=== PATIENT | female | born 1975 | race Caucasian/White ===

== ENCOUNTER 2018-06-01 23:26 | Emergency (ER) | END 2018-06-02 03:23 | disposition home or self-care (01) ==

== ENCOUNTER 2018-06-02 17:11 | Inpatient (IN) | payer MEDICAID ==
[~2018-06-02] VITALS: Ht 162.6 cm; Wt 94.2 kg
[~2018-06-02 17:11] MED LIST: CIPR500T4 PO; HYDR-3498 PO; IBUP-1542 PO
[2018-06-02 17:14] VITALS: Ht 162.6 cm; Wt 94.2 kg
[2018-06-02] MEDS ORDERED: ONDANSETRON 4 MG INJ IV STA (18:10)
[2018-06-02] MEDS ORDERED: SOD CHLORIDE 0.9% 1,000 ML IV ONE (18:30)
[2018-06-02] MEDS ORDERED: CEFTRIAXONE 1 GM/50 ML (PMX) 50 ML IVPB ONE (18:30)
[2018-06-02] MEDS ORDERED: morphine 4 MG/ML VIAL IV STA (19:08)
--- NOTE | 2018-06-02 19:20 | ERD ---
ER Documentation Chief Complaint Chief Complaint Pt called by [facility] for lab results, seen yesterday HPI 43-year-old female history of remote appendectomy was evaluated in the ED earlier this morning diagnosed with pyelonephritis treated with Rocephin and discharged on ciprofloxacin called back today for evaluation of blood cultures which were positive for gram-negative rods. Patient complains of ongoing fevers, right flank pain and mild, generalized headache. Denies neck or back pain. Denies dysuria, polyuria or hematuria. Denies chest pain, palpitations, cough or shortness of breath. No relieving or exacerbating factors. ROS All systems reviewed and are negative except as per history of present illness. Medications Home Meds Active Scripts Hydrocodone Bit-Acetaminophen (Hydrocodone Bit-APAP) 5-325MG Tablet, 1 TAB PO Q6H PRN for MODERATE PAIN LEVEL 4-6 for 7 Days, #28 TAB Prov:REUBEN VAZ MD 06/07/18 Simethicone (GAS RELIEF) 80 Mg Tab.chew, 80 MG PO Q6 PRN for DISTENSION/GAS/BLOATING for 30 Days, #120 TAB.CHEW Prov:REUBEN VAZ MD 06/06/18 Ondansetron (Ondansetron Odt) 4 Mg Tab.rapdis, 4 MG PO Q6H PRN for NAUSEA AND/OR VOMITING for 7 Days, #30 TAB Prov:REUBEN VAZ MD 06/06/18 Fluticasone Propionate* (Fluticasone Propionate* Nasal) 50 Mcg/[place] - 16 Gm [place].susp, 1 SPRAY NASAL BID for 14 Days, #1 BOT 6 Refills Prov:REUBEN VAZ MD 06/06/18 Loratadine/Pseudoephedrine (Alavert D-12 Allergy-Sinus Tab) 1 Each Tab.er.12h, 1 TAB PO Q12 for 7 Days, #14 TAB Prov:REUBEN VAZ MD 06/06/18 Ciprofloxacin Hcl* (Ciprofloxacin Hcl*) 500 Mg Tablet, 500 MG PO BID for 10 Days, #20 TAB Prov:REUBEN VAZ MD 06/06/18 Ibuprofen* (Motrin*) 600 Mg Tab, 600 MG PO Q6, #20 TAB Prov:ASHLEY OLMOS MD 06/02/18 Discontinued Scripts Hydrocodone Bit/Acetaminophen (Anexsia 5-325 Mg Tablet) 1 Tab Tablet, 2 TAB PO Q4 PRN for PAIN LEVEL 4-7, #20 TAB Prov:KADE MEEK NP 11/11/15 Allergies Allergies: Coded Allergies: No Known Allergy (Unverified , 06/02/18) PMhx/Soc Reviewed in chart. As per HPI. History of Surgery: Yes (just had laparoscopic appendectomy) Anesthesia Reaction: No Hx Neurological Disorder: No Hx Respiratory Disorders: No Hx Cardiac Disorders: No Hx Psychiatric Problems: No Hx Miscellaneous Medical Probl: No Hx Alcohol Use: No Hx Substance Use: No Hx Tobacco Use: No FmHx No family history relevant to presenting complaint Physical Exam Vitals Temperature: 98.7. Pulse: 98. Respirations: 18. Blood pressure: 124/73. O2 saturation 97% on room air. Physical Exam Const: Alert, moderate distress Head: Atraumatic Eyes: Normal Conjunctiva ENT: Normal External Ears, Nose and Mouth. Neck: Full range of motion. No meningismus. Resp: Clear to auscultation bilaterally Cardio: Regular rate and rhythm, no murmurs Abd: Soft, non tender, non distended. No rebound or guarding. Normal bowel sounds Skin: No petechiae or rashes Back: Right CVA tenderness. Ext: No cyanosis, or edema Neur: Awake and alert Psych: Normal Mood and Affect Result Diagram: 06/05/18 0616 06/05/18 0616 Results 24 hrs Laboratory Tests Test 06/02/18 18:17 White Blood Count 9.3 10^3/ul Red Blood Count 3.59 10^6/ul Hemoglobin 10.8 g/dl Hematocrit 32.7 % Mean Corpuscular Volume 91.1 fl Mean Corpuscular Hemoglobin 30.1 pg Mean Corpuscular Hemoglobin Concent 33.0 g/dl Red Cell Distribution Width 12.8 % Platelet Count 131 10^3/UL Mean Platelet Volume 9.9 fl Immature Granulocytes % 0.400 % Neutrophils % 85.2 % Lymphocytes % 10.3 % Monocytes % 3.7 % Eosinophils % 0.3 % Basophils % 0.1 % Nucleated Red Blood Cells % 0.0 /100WBC Immature Granulocytes # 0.040 10^3/ul Neutrophils # 7.9 10^3/ul Lymphocytes # 1.0 10^3/ul Monocytes # 0.3 10^3/ul Eosinophils # 0.0 10^3/ul Basophils # 0.0 10^3/ul Nucleated Red Blood Cells # 0.0 10^3/ul Sodium Level 141 mmol/L Potassium Level 3.5 mmol/L Chloride Level 104 mmol/L Carbon Dioxide Level 28 mmol/L Anion Gap 9 Blood Urea Nitrogen 6 mg/dl Creatinine 0.63 mg/dl Est Glomerular Filtrat Rate mL/min > 60 mL/min Glucose Level 147 mg/dl Calcium Level 8.5 mg/dl Total Bilirubin 0.7 mg/dl Direct Bilirubin 0.00 mg/dl Indirect Bilirubin 0.7 mg/dl Aspartate Amino Transf (AST/SGOT) 30 IU/L Alanine Aminotransferase (ALT/SGPT) 29 IU/L Alkaline Phosphatase 80 IU/L Total Protein 6.9 g/dl Albumin 3.5 g/dl Globulin 3.40 g/dl Albumin/Globulin Ratio 1.02 Lipase 10 U/L Current Medications Medications Dose Sig/Norma Start Time Status Last (Trade) Ordered Route PRN Stop Time Admin Dose Reason Admin Sodium 1,000 ml @ Q1H ONCE 06/02/18 DC 06/02/18 Chloride 1,000 mls/hr IV 18:30 18:17 06/02/18 19:29 Ceftriaxone 50 ml @ ONCE ONCE 06/02/18 DC 06/02/18 Sodium 100 mls/hr IVPB 18:30 18:17 06/02/18 18:59 Ondansetron 4 mg ONCE STAT 06/02/18 DC 06/02/18 HCl (Zofran IV 18:10 18:17 Inj) 06/02/18 18:12 Morphine 4 mg ONCE STAT 06/02/18 DC 06/02/18 Sulfate IV 19:08 19:13 (morphine) 06/02/18 19:09 Sodium 1,000 ml @ Q10H IV 06/02/18 DC 06/03/18 Chloride 100 mls/hr 19:39 04:38 06/03/18 15:38 Procedures/MDM DOCUMENTS REVIEWED: ED nurse, prior ED MEDICAL DECISION MAKIN-year-old female history of remote appendectomy was evaluated in the ED earlier this morning diagnosed with pyelonephritis treated with Rocephin and discharged on ciprofloxacin called back today for evaluation of blood cultures which were positive for gram-negative rods. CBC consistent with previously diagnosed anemia but no leukocytosis. Chemistry reveals no renal insufficiency or electrolyte abnormalities. Liver function tests are unremarkable. Urinalysis reveals 11 WBCs per high-power field and 1+ leukocytes but negative nitrite. Patient with gram-negative bacteremia likely secondary to pyelonephritis although considering her ongoing symptoms an occult intra- abdominal etiology is also possible including cholecystitis and further imaging should be considered. No respiratory symptoms or signs of pneumonia. Gradual onset headache not consistent with subarachnoid hemorrhage, meningitis or encephalitis hence neuroimaging and lumbar puncture not indicated. Admit to [facility] for intravenous antibiotics, further evaluation and management. PATIENT CARE TRANSITIONED: Time: 19:20, Dr. Almeida. Counseled patient and family regarding diagnosis, diagnostic results and plan for admission. Departure Diagnosis: Primary Impression: Gram-negative bacteremia Additional Impressions: Pyelonephritis Headache Headache type: unspecified Headache chronicity pattern: acute headache Intractability: not intractable Qualified Codes: R51 - Headache Condition: Serious SATISH NICHOLSON MD Jun 02, 2018 19:20
--- NOTE | 2018-06-02 19:52 | HP ---
Date/Time of Note Date/Time of Note DATE: 06/02/18 TIME: 19:52 Assessment/Plan VTE Prophylaxis SCD applied (from Nsg): Yes Pharmacological prophylaxis: NA/contraindicated Pharm contraindication: low risk/ambulating Lines/Catheters IV Catheter Type (from Nrsg): [place] Assessment/Plan Hospital Course This is a 43-year-old female being admitted to the [facility] floor for: #1 right-sided pyelonephritis: Patient is CVA tenderness palpation. At the current time she was also found to have gram-negative bacteremia she was given ceftriaxone IV in the ED at the current time I will continue her on ceftriaxone 2 g IV every 24 hours. Will await urine culture results. Dilaudid for pain. Given the degree of the patient's pain and on and off duration for the last few months I will also order a CT of the abdomen pelvis without contrast to assess for any other underlying abnormalities such as possible kidney stone. #2 gram-negative bacteremia: Currently on ceftriaxone, await culture results. #3 Obesity: We will check hemoglobin A1c, lipid panel, TSH #4 DVT GI prophylaxis: SCDs, no GI prophylaxis indicated Further treatment strategy will be implemented as per the clinical course Result Diagram: 06/02/187 06/02/18 1817 Results 24hrs Laboratory Tests Test 06/02/18 18:17 White Blood Count 9.3 Red Blood Count 3.59 L Hemoglobin 10.8 L Hematocrit 32.7 L Mean Corpuscular Volume 91.1 Mean Corpuscular Hemoglobin 30.1 Mean Corpuscular Hemoglobin Concent 33.0 Red Cell Distribution Width 12.8 Platelet Count 131 L Mean Platelet Volume 9.9 Immature Granulocytes % 0.400 Neutrophils % 85.2 H Lymphocytes % 10.3 L Monocytes % 3.7 Eosinophils % 0.3 Basophils % 0.1 Nucleated Red Blood Cells % 0.0 Immature Granulocytes # 0.040 H Neutrophils # 7.9 H Lymphocytes # 1.0 Monocytes # 0.3 Eosinophils # 0.0 Basophils # 0.0 Nucleated Red Blood Cells # 0.0 Sodium Level 141 Potassium Level 3.5 Chloride Level 104 Carbon Dioxide Level 28 Anion Gap 9 Blood Urea Nitrogen 6 L Creatinine 0.63 Est Glomerular Filtrat Rate mL/min > 60 Glucose Level 147 Calcium Level 8.5 Total Bilirubin 0.7 Direct Bilirubin 0.00 Indirect Bilirubin 0.7 Aspartate Amino Transf (AST/SGOT) 30 Alanine Aminotransferase (ALT/SGPT) 29 Alkaline Phosphatase 80 Total Protein 6.9 Albumin 3.5 Globulin 3.40 H Albumin/Globulin Ratio 1.02 Lipase 10 L HPI/ROS Admit Date/Time Admit Date/Time Hx of Present Illness Chief complaint: Fever, flank pain, positive blood culture This is a 43 year old female who was diagnosed with the last 24 hours of urinary tract infection and was given IV Rocephin and sent home on ciprofloxacin. Patient was called back to [facility] after she had a positive blood culture with gram-negative rods. Patient at the current time reports headache as well as fevers. She states that she continues to have right flank pain. She denies any chest pain. She does report urinary frequency. Upon further questioning the patient does report that her right-sided flank pain has been on and off for the last few months. Allergies: NKDA Medications: None ROS Const: As per HPI Eyes : No pain discharge or redness or change in visual acuity ENT: No pain, sore throat, congestion, congestion, dysphagia or discharge Respiratory: No shortness of breath, cough, sputum, wheezing, or pleuritic pain Cardiovascular: No chest pain, palpitation, PND, or edema GI : no change in appetite, abdominal pain, nausea, vomiting, diarrhea, constipation, or change in the color his stool Genitourinary: As per HPI Musculoskeletal: No joint pain, back pain, neck pain, restricted range of motion in neck or joints Skin: No rash, bruising or hives Neuro: No headache, dizziness, syncope, seizure, focal weakness Endocrine: No polyuria, polydipsia, temperature intolerance Psych: No hallucination, depression, anxiety or suicidal ideation PMH/Family/Social Past Medical History Medical History: no pertinent history Medications Current Medications Sodium Chloride 1,000 ml @ 100 mls/hr Q10H IV ; Start 06/02/18 at 19:39; Stop 06/03/18 at 15:38; Status UNV IV Flush (NS 3 ml) 3 ml PER PROTOCOL IV ; Start 06/02/18 at 20:00; Status UNV Ondansetron HCl (Zofran Tab) 4 mg Q6H PRN PO NAUSEA AND/OR VOMITING; Start 06/02/18 at 20:00; Status UNV Acetaminophen (Tylenol Tab) 650 mg Q6H PRN PO PAIN LEVEL 1-3 OR FEVER; Start 06/02/18 at 20:00; Status UNV Acetaminophen/ Hydrocodone Bitart ([place] (5/325)) 1 tab Q6H PRN PO MODERATE PAIN LEVEL 4-6; Start 06/02/18 at 20:00; Status UNV Docusate Sodium (Colace) 100 mg Q12H PRN PO CONSTIPATION; Start 06/02/18 at 20 :00; Status UNV Bisacodyl (Dulcolax) 5 mg DAILY PRN PO CONSTIPATION; Start 06/02/18 at 20:00; Status UNV Coded Allergies: No Known Allergy (Unverified , 06/02/18) Past Surgical History Appendectomy? Past Surgical Hx: other Family History Significant Family History: no pertinent family hx Social History Alcohol Use: none Exam/Review of Systems Vital Signs Vitals Vital Signs Date Temp Pulse Resp B/P (MAP) Pulse Ox O2 O2 Flow FiO2 Time Delivery Rate 06/02/18 98.7 98 18 124/73 97 17:14 (90) Exam Exam General: Patient is a pleasant female currently lying in bed in moderate distress from flank pain HEENT: Atraumatic, normocephalic. The pupils are equal, round and reactive. Extraocular motor are intact Neck: Supple with full range of motion. No rigidity or meningismus Chest: Nontender Lungs: Clear to auscultation bilaterally no crackles rales or wheezing Heart: Normal S1-S2, Regular rhythm and rate. No murmur, S3, or S4 Abdomen: ight-sided flank tender to palpation,Soft , nontender, nondistended , bowel sounds are present. No guarding no rebound tenderness , r Extremities: Normal to inspection, no edema no cyanosis Neurologic: Normal mental status, speech normal, cranial nerves II through XII are intact, motor and sensory are intact, no focal weakness Additional Comments PROCEDURE: Portable chest x-ray. CLINICAL INDICATION: 43 years of age, female. Right flank pain. UTI. TECHNIQUE: Portable AP view of the chest. COMPARISON: CT abdomen pelvis November 10, 2015 FINDINGS: Medical devices: None. Mediastinum: Cardiomediastinal contours are normal. Lungs: There is mild elevation of the right diaphragm that is unchanged from the prior CT. There is nonspecific mild increased opacity at the right greater than left lung bases. Lungs are otherwise clear. Pleura: Negative for pleural effusion or pneumothorax. Bones: No acute bony abnormality. Additional comment: None. IMPRESSION: 1. Mild elevation of the right diaphragm is unchanged since November 10, 2015. 2. Nonspecific opacity at the right greater than left lung bases may be due to atelectasis, aspiration or pneumonia. RPTAT: HCTS Edna Acevedo Physician Date Time Electronically viewed and signed by Edna Acevedo Physician on 06/03/2018 01:25 CS/ CC: FAWN COKER [id number] FAWN COKER Jun 02, 2018 19:52
[2018-06-02] MEDS ORDERED: BISACODYL (EC) 5 MG TAB PO PRN (20:00)
[2018-06-02] MEDS ORDERED: DOCUSATE SODIUM 100 MG CAP PO PRN (20:00)
[2018-06-02] MEDS ORDERED: NACL 0.9% 3 ML SYG IV SCH (20:00)
[2018-06-02 20:30] VITALS: BP 100/55; RESP 18
[2018-06-02] MEDS: HYDROCODONE/APAP (5/325) TAB PO PRN (20:57)
[2018-06-02] MEDS: ONDANSETRON 4 MG TAB PO PRN (20:57)
[2018-06-02] MEDS: SOD CHLORIDE 0.9% 1,000 ML IV SCH (20:58)
--- NOTE | 2018-06-02 21:30 | NUR ---
admitted patient from ER with daughter as asset management analyst. alert oriented x 4. oriented pt with room, phone and call button. also oriented pt with hourly rounding and encouraged to call for help at all times. skin assessment done with photos take. admission orders placed in by Dr Almeida. noted and carried out. medicated with [place] for pain with help. will continue to monitor.
--- NOTE | 2018-06-03 00:10 | NUR ---
DR Almeida in the unit, informed of pt's complaint of occasional SOB during exertion for a month. Dr Almeida placed in order for XCR and CT of abdomen.
[2018-06-03] MEDS: HYDROmorphONE 0.5 MG/0.5 ML SYG IV PRN (01:57)
[2018-06-03 02:10] VITALS: BP 119/68; PULSE 96; RESP 18
--- NOTE | 2018-06-03 03:20 | NUR ---
Results for CT abdomen and CXR is out. verified with Dr Almeida if he is aware of the results. DR Almeida confirmed and placed in new order for US stat and zosyn. Addendum: 06/03/18 at 0414 by ISRAEL KHALIL RN ultrasound done. pt updated with the new orders as needed and answered questions. will continue to monitor.
[2018-06-03] MEDS ORDERED: PIPER-TAZO 3.375 GM IV (PMX) 100 ML IVPB SCH (03:30)
[2018-06-03] MEDS: PIPER-TAZO 3.375 GM IV (PMX) 100 ML IVPB SCH ×4 (03:59→23:49)
[2018-06-03] MEDS: HYDROCODONE/APAP (5/325) TAB PO PRN (04:38)
[2018-06-03] MEDS: SOD CHLORIDE 0.9% 1,000 ML IV SCH (04:38)
--- NOTE | 2018-06-03 06:32 | NUR ---
patient afebrile with VSS. medicated with norco for pain with relief. needs attended to and anticipated with fall precautions continued. will continue to monitor and will endorse to next shift.
[2018-06-03 07:53] VITALS: BP 104/65; PULSE 93; RESP 18
[2018-06-03] MEDS ORDERED: POTASSIUM CHLORIDE (SR) 20 MEQ TAB PO STA (08:51)
--- NOTE | 2018-06-03 09:01 | PN ---
Date/Time of Note Date/Time of Note DATE: 06/03/18 TIME: 09:01 Assessment/Plan VTE Prophylaxis SCD applied (from Nsg): Yes Pharmacological prophylaxis: LMWH Lines/Catheters IV Catheter Type (from Nrsg): Peripheral IV Urinary Cath still in place: No Assessment/Plan Assessment/Plan 1. Acute headache - most likely secondary to dehydration/ poor PO intake - Denies any visual changes - Will treat and if continues to worsen, will check CT head to rule out pathological cause for pain 2. Right flank pain - ? pyelonephritis given denies any urinary difficulty - Will check UA and urine cultures - IV antibiotics on board and will continue on fluids 3. ?Acute cholecystitis - US and CT scan results noted. HIDA scan ordered and pending - Will continue on IV antibiotics and if no improvement and not tolerating PO intake, will consult surgery for evaluation. No stones appreciated on imaging studies - LFT within normal limits 4. Sepsis secondary to Bacteremia - unknown source at this time, pyelo vs acute znuilda - Will repeat blood cultures - initial cx growing gram neg - ID consulted for antibiotic management 5. Hypokalemia - replaced 6. Disposition - HIDA scan pending. Monitor for improvement and continue current treatment Result Diagram: 06/03/18 0528 06/03/18 0528 Results 24hrs Laboratory Tests Test 06/02/18 18:17 06/03/18 05:28 White Blood Count 9.3 7.2 # Red Blood Count 3.59 L 3.14 L Hemoglobin 10.8 L 9.4 L Hematocrit 32.7 L 28.9 L Mean Corpuscular Volume 91.1 92.0 Mean Corpuscular Hemoglobin 30.1 29.9 Mean Corpuscular Hemoglobin Concent 33.0 32.5 Red Cell Distribution Width 12.8 13.1 Platelet Count 131 L 117 L Mean Platelet Volume 9.9 10.6 H Immature Granulocytes % 0.400 0.400 Neutrophils % 85.2 H 80.1 H Lymphocytes % 10.3 L 12.5 L Monocytes % 3.7 6.5 Eosinophils % 0.3 0.4 Basophils % 0.1 0.1 Nucleated Red Blood Cells % 0.0 0.0 Immature Granulocytes # 0.040 H 0.030 Neutrophils # 7.9 H 5.8 Lymphocytes # 1.0 0.9 Monocytes # 0.3 0.5 Eosinophils # 0.0 0.0 Basophils # 0.0 0.0 Nucleated Red Blood Cells # 0.0 0.0 Sodium Level 141 138 Potassium Level 3.5 3.4 L Chloride Level 104 100 Carbon Dioxide Level 28 27 Anion Gap 9 11 Blood Urea Nitrogen 6 L 5 L Creatinine 0.63 0.65 Est Glomerular Filtrat Rate mL/min > 60 > 60 Glucose Level 147 116 Calcium Level 8.5 7.9 L Total Bilirubin 0.7 0.4 Direct Bilirubin 0.00 0.00 Indirect Bilirubin 0.7 0.4 Aspartate Amino Transf (AST/SGOT) 30 18 Alanine Aminotransferase (ALT/SGPT) 29 28 Alkaline Phosphatase 80 61 Total Protein 6.9 5.2 #L Albumin 3.5 2.8 L Globulin 3.40 H 2.40 Albumin/Globulin Ratio 1.02 1.16 Lipase 10 L Hemoglobin A1c 5.7 Magnesium Level 2.0 Gamma Glutamyl Transpeptidase 51 H Triglycerides Level 156 H Cholesterol Level 134 LDL Cholesterol, Calculated 75 HDL Cholesterol 28 L Cholesterol/HDL Ratio 4.7 Thyroid Stimulating Hormone (TSH) 0.921 Free Thyroxine Index 2.28 Thyroxine (T4) 6.4 Triiodothyronine (T3) Uptake 35.6 Subjective 24 Hr Interval Summary Free Text/Dictation Patient admits to headache with associated nausea and diminished appetite. She also admits to abdominal bloating when she eats but denies any diarrhea or vomiting with food intake. Exam/Review of Systems Vital Signs Vitals Vital Signs Date Temp Pulse Resp B/P (MAP) Pulse Ox O2 O2 Flow FiO2 Time Delivery Rate 06/03/18 100.3 93 18 104/65 97 07:53 (78) 06/02/18 Room Air 20:25 Intake and Output 06/02/18 06/02/18 06/03/18 1515:00 23:00 07:00 IntakeIntake Total 700 ml 1770 ml BalanceBalance 700 ml 1770 ml Exam General: distress secondary to headache HEENT: Atraumatic, normocephalic. The pupils are equal, round and reactive. Extraocular motor are intact Neck: Supple Chest: Nontender Lungs: Clear to auscultation bilaterally no crackles rales or wheezing Heart: Normal S1-S2, Regular rhythm and rate. No murmurs Abdomen: soft , right-sided flank tender to palpation, mild RUQ pain to palpation, nondistended , bowel sounds are present. No guarding no rebound tenderness , Extremities: Normal to inspection, no edema no cyanosis Medications Medications Current Medications Sodium Chloride 1,000 ml @ 100 mls/hr Q10H IV Last administered on 06/03/18 04:38; Admin Dose 100 MLS/HR; Start 06/02/18 at 19:39; Stop 06/03/18 at 15:38 IV Flush (NS 3 ml) 3 ml PER PROTOCOL IV ; Start 06/02/18 at 20:00 Ondansetron HCl (Zofran Tab) 4 mg Q6H PRN PO NAUSEA AND/OR VOMITING Last administered on 06/02/18at 20:57; Admin Dose 4 MG; Start 06/02/18 at 20:00 Acetaminophen (Tylenol Tab) 650 mg Q6H PRN PO PAIN LEVEL 1-3 OR FEVER; Start 06/02/18 at 20:00 Acetaminophen/ Hydrocodone Bitart ([place] (5/325)) 1 tab Q6H PRN PO MODERATE PAIN LEVEL 4-6 Last administered on 06/03/18at 04:38; Admin Dose 1 TAB; Start 06/02/18 at 20:00 Docusate Sodium (Colace) 100 mg Q12H PRN PO CONSTIPATION; Start 06/02/18 at 20:00 Bisacodyl (Dulcolax) 5 mg DAILY PRN PO CONSTIPATION; Start 06/02/18 at 20:00 Hydromorphone HCl (Dilaudid) 0.5 mg Q4H PRN IV SEVERE PAIN LEVEL 7-10 Last administered on 06/03/18at 01:57; Admin Dose 0.5 MG; Start 06/03/18 at 00:30 Influenza Virus Vaccine Quadrival (Fluzone) 0.5 ml ONCE ONCE IM* ; Start 06/04/18 at 10:00; Stop 06/04/18 at 10:01 Piperacillin Sod/ Tazobactam Sod 100 ml @ 200 mls/hr Q6 IVPB Last administered on 06/03/18at 03:59; Admin Dose 200 MLS/HR; Start 06/03/18 at 03:30 REUBEN VAZ MD Jun 03, 2018 09:01
[2018-06-03] MEDS: ACETAMINOPHEN 325 MG TAB PO PRN (09:11)
[2018-06-03] MEDS: KETOROLAC 30 MG INJ IV PRN ×3 (10:56→23:52)
[2018-06-03] MEDS: ONDANSETRON 4 MG TAB PO PRN ×2 (11:00→17:44)
--- NOTE | 2018-06-03 14:33 | CONS ---
DATE OF ADMISSION: 06/02/2018 DATE OF CONSULTATION: 06/02/2018 TYPE OF CONSULTATION: Infectious disease. REASON FOR CONSULTATION: Antibiotic management. HISTORY OF PRESENT ILLNESS: Angelica Huerta is a 43-year-old female admitted on 06/02/2018 with right- sided pyelonephritis and is being seen for antibiotic management. The patient presents with right CV A tenderness. She was seen in the Emergency Room on the day prior to her admission. As noted, she p resents with right CVA tenderness. She was found to have gram-negative sepsis, was given ceftriaxone in the Emergency Room and was continued on ceftriaxone 2 grams q.24h. The patient has increasing pa in intermittently for the last few months. A CT scan of the abdomen and pelvis was ordered without c ontrast. As noted, she has Gram-negative vipin bacteremia. She is obese, white count is 9.3, H and H of 10.8 and 32.7, platelet count 131,000 on the 24th, BUN and creatinine 6/0.63. Today, white count 7.2, BUN and creatinine 5/0.65. Microbiology is pending. A CT scan of the abdomen and pelvis shows possible cholecystitis. Correlate with ultrasound and/or HIDA scan as appropriate. According to the CT scan, there is slightly distended gallbladder and a suggestion of some wall thickening or pericho lecystic fluid. No definite radiopaque stone, no biliary ductal dilatation or visible choledocholith iasis. Pancreas is unremarkable. No ductal dilatation, no splenomegaly, no masses in the adrenals, no hydronephrosis or renal calculi. She has few colonic diverticula. No evidence for diverticulitis . She had a prior appendectomy. The patient has been switched to Zosyn from ceftriaxone. PAST MEDICAL HISTORY: Operations: Status post laparoscopic appendectomy. FAMILY HISTORY: Noncontributory. SOCIAL HISTORY: She does not smoke, drink or abuse drugs. ALLERGIES: None to penicillin, sulfa or foods. MEDICATIONS: Per chart. REVIEW OF SYSTEMS: As per HPI. PHYSICAL EXAMINATION: GENERAL: The patient is awake, responsive, in no acute distress. VITAL SIGNS: Stable. She is afebrile. SKIN: Without generalized rash. HEENT: Within normal limits. NECK: Supple. LYMPH NODES: None palpable. CHEST: Decreased breath sounds at the bases. HEART: Without murmur or gallop. ABDOMEN: Soft, nontender except in the right upper and lower quadrants without guarding or rebound. EXTREMITIES: Without cyanosis, clubbing, or edema. RECTAL AND GENITAL: Deferred. NEUROLOGIC: No focal neurological abnormality. IMPRESSION AND PLAN: Angelica Huerta is a 43-year-old female who may possibly have cholecystitis. She should have surgical evaluation and should also have a HIDA scan. We will see if we can arrange for a HIDA scan today. I will dictate my findings to the hospitalist. Dictated By: CELI OLSON MD, JD/NAOMIE Conf#: [id number] DID#: [id number] CC: FAWN COKER MD;*[facility]*
[2018-06-03 14:49] VITALS: BP 98/56; PULSE 83; RESP 18
[2018-06-03] MEDS ORDERED: CEFTRIAXONE 2 GM/50 ML (PMX) 50 ML IVPB SCH (18:00)
--- NOTE | 2018-06-03 18:31 | NUR ---
RN NOTES patient is alert and oriented X4, verbally responsive and able to make needs known. complains of pain and nausea, medicated as ordered and effective. all due medicine given and all needs attended to. on schedule for HIDA scan tomorrow, dr. Pereira made aware. patient needs to be NPO after midnight as per nuclear medicine dept. will endorse night nurse. call light placed within reach and fall precautions observed well. dr. michele wants to know, if any plan for surgery or any surgery consult plan. dr. pereira made aware and as per MD no surgery plan for now. will continue to monitor.
[2018-06-03 19:47] VITALS: BP 117/65; PULSE 63; RESP 20
[2018-06-04] MEDS: ONDANSETRON 4 MG TAB PO PRN ×3 (00:32→20:30)
[2018-06-04] MEDS: SOD CHLORIDE 0.9% 1,000 ML IV SCH ×3 (00:33→17:05)
[2018-06-04 02:05] VITALS: BP 102/60; PULSE 76; RESP 18
[2018-06-04] MEDS: PIPER-TAZO 3.375 GM IV (PMX) 100 ML IVPB SCH ×3 (06:07→17:05)
[2018-06-04] MEDS: KETOROLAC 30 MG INJ IV PRN ×2 (06:07→20:32)
[2018-06-04] MEDS: PANTOPRAZOLE (EC) 40 MG TAB PO SCH (06:11)
--- NOTE | 2018-06-04 06:53 | NUR ---
End of shift Report: Sleeping on bed in comfortable position. No sob. No resp distress. Afebrile. Medicated for flank pain x2 , well-reina and effective. Nausea med given as ordered. On NPO after midnight for HIDA scan in am. No acute events overnight. Needs attended and anticipated. Call light within reach. Will continue to monitor pt. Will endorse accordingly.
[2018-06-04 07:53] VITALS: BP 123/76; PULSE 76; RESP 16
--- NOTE | 2018-06-04 08:36 | PN ---
Date/Time of Note Date/Time of Note DATE: 06/04/18 TIME: 08:36 Assessment/Plan VTE Prophylaxis Risk score (from Ns)>0 risk: 2 SCD applied (from Ns): Yes Pharmacological prophylaxis: LMWH Lines/Catheters IV Catheter Type (from Nrs): Peripheral IV Urinary Cath still in place: No Assessment/Plan Assessment/Plan 1. Acute headache- stable - improves after given pain control - most likely secondary to dehydration/ poor PO intake - Denies any visual changes 2. Right flank pain - UA shows leuk esterase. Urine cx negative but expected since given antibiotics prior to cx being obtained - continue monitoring for improvement - IV antibiotics on board and will continue on fluids 3. ?Acute cholecystitis - US and CT scan results noted. HIDA scan ordered and pending - Will continue on IV antibiotics and if no improvement and not tolerating PO intake, will consult surgery for evaluation. No stones appreciated on imaging studies - LFT within normal limits 4. Sepsis secondary to Bacteremia - improving - repeat blood cultures negative to date - initial blood cx growing gram neg - ID consultation appreciated 5. Disposition - HIDA scan pending and will proceed based on results Result Diagram: 06/04/18 0528 06/04/18 0528 Results 24hrs Laboratory Tests Test 06/03/18 09:10 06/04/18 05:28 Urine Color YELLOW Urine Clarity CLEAR Urine pH 6.0 Urine Specific [place] 1.005 Urine Ketones NEGATIVE Urine Nitrite NEGATIVE Urine Bilirubin NEGATIVE Urine Urobilinogen 1+ H Urine Leukocyte Esterase 1+ H Urine Microscopic RBC 4 Urine Microscopic WBC 11 H Urine Squamous Epithelial Cells FEW Urine Bacteria FEW A Urine Hemoglobin 2+ H Urine Glucose NEGATIVE Urine Total Protein NEGATIVE White Blood Count 4.6 #L Red Blood Count 3.11 L Hemoglobin 9.3 L Hematocrit 28.7 L Mean Corpuscular Volume 92.3 Mean Corpuscular Hemoglobin 29.9 Mean Corpuscular Hemoglobin Concent 32.4 Red Cell Distribution Width 13.2 Platelet Count 130 L Mean Platelet Volume 10.7 H Immature Granulocytes % 0.400 Neutrophils % 68.1 Lymphocytes % 22.7 Monocytes % 7.3 Eosinophils % 1.3 Basophils % 0.2 Nucleated Red Blood Cells % 0.0 Immature Granulocytes # 0.020 Neutrophils # 3.2 Lymphocytes # 1.1 Monocytes # 0.3 Eosinophils # 0.1 Basophils # 0.0 Nucleated Red Blood Cells # 0.0 Sodium Level 142 Potassium Level 4.1 Chloride Level 105 Carbon Dioxide Level 29 Anion Gap 8 Blood Urea Nitrogen 8 Creatinine 0.65 Glucose Level 106 Calcium Level 8.3 L Phosphorus Level 3.0 Magnesium Level 2.4 Albumin 3.1 L Subjective 24 Hr Interval Summary Free Text/Dictation Patient states shes still with headaches and nausea. Not tolerating PO diet due to bloating and abdominal discomfort. Plans for HIDA scan today. Exam/Review of Systems Vital Signs Vitals Vital Signs Date Temp Pulse Resp B/P (MAP) Pulse Ox O2 O2 Flow FiO2 Time Delivery Rate 06/04/18 98.5 76 16 123/76 94 07:53 (92) 06/02/18 Room Air 20:25 Intake and Output 06/03/18 06/03/18 06/04/18 1515:00 23:00 07:00 IntakeIntake Total 400 ml 3150 ml 770 ml BalanceBalance 400 ml 3150 ml 770 ml Exam General: mild distress secondary to headache HEENT: Atraumatic, normocephalic. The pupils are equal, round and reactive. Extraocular motor are intact Chest: Nontender Lungs: Clear to auscultation bilaterally no crackles rales or wheezing Heart: Normal S1-S2, Regular rhythm and rate. No murmurs Abdomen: soft , diffusely tender to palpation all quadrants and right CVA tenderness, nondistended , bowel sounds are present. No guarding no rebound tenderness , Extremities: Normal to inspection, no edema no cyanosis Medications Medications Current Medications IV Flush (NS 3 ml) 3 ml PER PROTOCOL IV ; Start 06/02/18 at 20:00 Ondansetron HCl (Zofran Tab) 4 mg Q6H PRN PO NAUSEA AND/OR VOMITING Last administered on 06/04/18at 00:32; Admin Dose 4 MG; Start 06/02/18 at 20:00 Acetaminophen (Tylenol Tab) 650 mg Q6H PRN PO PAIN LEVEL 1-3 OR FEVER Last administered on 06/03/18at 09:11; Admin Dose 650 MG; Start 06/02/18 at 20:00 Acetaminophen/ Hydrocodone Bitart ([place] (5/325)) 1 tab Q6H PRN PO MODERATE PAIN LEVEL 4-6 Last administered on 06/03/18at 04:38; Admin Dose 1 TAB; Start 06/02/18 at 20:00 Docusate Sodium (Colace) 100 mg Q12H PRN PO CONSTIPATION; Start 06/02/18 at 20:00 Bisacodyl (Dulcolax) 5 mg DAILY PRN PO CONSTIPATION; Start 06/02/18 at 20:00 Hydromorphone HCl (Dilaudid) 0.5 mg Q4H PRN IV SEVERE PAIN LEVEL 7-10 Last administered on 06/03/18at 01:57; Admin Dose 0.5 MG; Start 06/03/18 at 00:30 Influenza Virus Vaccine Quadrival (Fluzone) 0.5 ml ONCE ONCE IM* ; Start 06/04/18 at 10:00; Stop 06/04/18 at 10:01 Piperacillin Sod/ Tazobactam Sod 100 ml @ 200 mls/hr Q6 IVPB Last administered on 06/04/18at 06:07; Admin Dose 200 MLS/HR; Start 06/03/18 at 03:30 Ketorolac Tromethamine (Toradol) 30 mg Q6H PRN IV PAIN LEVEL 1-3 Last administered on 06/04/18at 06:07; Admin Dose 30 MG; Start 06/03/18 at 10:30; Stop 06/06/18 at 10:29 Pantoprazole (Protonix Tab) 40 mg DAILY@06 PO Last administered on 06/04/18at 06:11; Admin Dose 40 MG; Start 06/04/18 at 06:00 Sodium Chloride 1,000 ml @ 80 mls/hr [id number] IV Last administered on 06/04/18at 00:33; Admin Dose 80 MLS/HR; Start 06/04/18 at 00:00 REUBEN VAZ MD Jun 04, 2018 08:36
--- NOTE | 2018-06-04 10:51 | NUR ---
patient was picked up by transport for the Hida Scan as ordered. Left the unit with no SOB or distress, IV patent and intact.
--- NOTE | 2018-06-04 11:16 | NUR ---
patient came back from, Hida Scan no SOB or distress. Spoke to Elvin from [facility], Per elvin, patient will be going down again for the Hida scan at 1400 and to keep patient on NPO and okay for the patient to receive pain medication.
[2018-06-04] MEDS: HYDROmorphONE 0.5 MG/0.5 ML SYG IV PRN (11:28)
[2018-06-04] MEDS: ACETAMINOPHEN 325 MG TAB PO PRN (12:03)
--- NOTE | 2018-06-04 12:53 | CONS ---
Date/Time of Note Date/Time of Note DATE: 06/04/18 TIME: 12:53 Assessment/Plan Assessment/Plan Hospital Course Patient is awake complaining of headache and right upper quadrant abdominal pain. She is in no distress. T-max yesterday 100.32 current 98 WBC 4.6 H&H 9.3 and 28.7 platelets 130 neutrophils 68.1 BUN 8 creatinine 0.65 Microbiology: Blood and urine culture on June 01 grew E. coli, repeat blood cultures negative Antimicrobials: Zosyn CT of the abdomen and pelvis revealed possible cholecystitis Physical examination: Well-developed obese middle-aged woman who is awake in no distress. Head atraumatic normocephalic. Neck is supple chest rise symmetrical breath sounds clear. Heart: S1-S2. Abdomen soft patient has tenderness over the right upper quadrant bowel sounds present extremities without cyanosis Assessment: 1. E. coli bacteremia secondary to urinary tract infection 2. Probable acute cholecystitis 3. Headache Plan: Patient remains stable, she is on appropriate antibiotics, consider HIDA scan and surgical evaluation Result Diagram: 06/04/18 0528 06/04/18 0528 Results 24hrs Laboratory Tests Test 06/04/18 05:28 White Blood Count 4.6 #L Red Blood Count 3.11 L Hemoglobin 9.3 L Hematocrit 28.7 L Mean Corpuscular Volume 92.3 Mean Corpuscular Hemoglobin 29.9 Mean Corpuscular Hemoglobin Concent 32.4 Red Cell Distribution Width 13.2 Platelet Count 130 L Mean Platelet Volume 10.7 H Immature Granulocytes % 0.400 Neutrophils % 68.1 Lymphocytes % 22.7 Monocytes % 7.3 Eosinophils % 1.3 Basophils % 0.2 Nucleated Red Blood Cells % 0.0 Immature Granulocytes # 0.020 Neutrophils # 3.2 Lymphocytes # 1.1 Monocytes # 0.3 Eosinophils # 0.1 Basophils # 0.0 Nucleated Red Blood Cells # 0.0 Sodium Level 142 Potassium Level 4.1 Chloride Level 105 Carbon Dioxide Level 29 Anion Gap 8 Blood Urea Nitrogen 8 Creatinine 0.65 Glucose Level 106 Calcium Level 8.3 L Phosphorus Level 3.0 Magnesium Level 2.4 Albumin 3.1 L Consultation Date/Type/Reason Admit Date/Time Jun 03, 2018 at 13:37 Initial Consult Date Type of Consult id Exam/Review of Systems Vital Signs Vitals Vital Signs Date Temp Pulse Resp B/P (MAP) Pulse Ox O2 O2 Flow FiO2 Time Delivery Rate 06/04/18 98.0 12:03 06/04/18 76 16 123/76 94 07:53 (92) 06/02/18 Room Air 20:25 Intake and Output 06/03/18 06/03/18 06/04/18 1515:00 23:00 07:00 IntakeIntake Total 400 ml 3150 ml 770 ml BalanceBalance 400 ml 3150 ml 770 ml Medications Medications Current Medications IV Flush (NS 3 ml) 3 ml PER PROTOCOL IV ; Start 06/02/18 at 20:00 Ondansetron HCl (Zofran Tab) 4 mg Q6H PRN PO NAUSEA AND/OR VOMITING Last administered on 06/04/18at 08:40; Admin Dose 4 MG; Start 06/02/18 at 20:00 Acetaminophen (Tylenol Tab) 650 mg Q6H PRN PO PAIN LEVEL 1-3 OR FEVER Last administered on 06/04/18at 12:03; Admin Dose 650 MG; Start 06/02/18 at 20:00 Acetaminophen/ Hydrocodone Bitart ([place] (5/325)) 1 tab Q6H PRN PO MODERATE PAIN LEVEL 4-6 Last administered on 06/03/18at 04:38; Admin Dose 1 TAB; Start 06/02/18 at 20:00 Docusate Sodium (Colace) 100 mg Q12H PRN PO CONSTIPATION; Start 06/02/18 at 20:00 Bisacodyl (Dulcolax) 5 mg DAILY PRN PO CONSTIPATION; Start 06/02/18 at 20:00 Hydromorphone HCl (Dilaudid) 0.5 mg Q4H PRN IV SEVERE PAIN LEVEL 7-10 Last administered on 06/04/18at 11:28; Admin Dose 0.5 MG; Start 06/03/18 at 00:30 Piperacillin Sod/ Tazobactam Sod 100 ml @ 200 mls/hr Q6 IVPB Last administered on 06/04/18at 11:28; Admin Dose 200 MLS/HR; Start 06/03/18 at 03:30 Ketorolac Tromethamine (Toradol) 30 mg Q6H PRN IV PAIN LEVEL 1-3 Last administered on 06/04/18at 06:07; Admin Dose 30 MG; Start 06/03/18 at 10:30; Stop 06/06/18 at 10:29 Pantoprazole (Protonix Tab) 40 mg DAILY@06 PO Last administered on 06/04/18at 06:11; Admin Dose 40 MG; Start 06/04/18 at 06:00 Sodium Chloride 1,000 ml @ 80 mls/hr [id number] IV Last administered on 06/04/18at 00:33; Admin Dose 80 MLS/HR; Start 06/04/18 at 00:00 ADAM LITTLE NP Jun 04, 2018 12:53
[2018-06-04 14:39] VITALS: BP 119/74; PULSE 84; RESP 16
--- NOTE | 2018-06-04 17:52 | NUR ---
Nurse Notes: Patient alert and oriented x 4 , able to make needs known remained stable throughout the shift with no acute changes noted. no SOB or distress. assessed and reassessed for pain, medicated with pain medications as ordered. All due medications were given, tolerated well. Iv patent and intact. safety precautions observed, hourly rounding done, bed alarm and bed brakes on for safety. Call light and telephone within reach at all times. Encouraged to use call light and telephone whenever assistance is needed. Will continue to monitor. Will endorse [id number] to next shift fro continuity of care.
[2018-06-04 20:14] VITALS: BP 150/85; PULSE 78; RESP 18
[2018-06-05] MEDS: PIPER-TAZO 3.375 GM IV (PMX) 100 ML IVPB SCH ×4 (00:06→17:38)
[2018-06-05] MEDS: HYDROmorphONE 0.5 MG/0.5 ML SYG IV PRN ×2 (00:27→10:14)
[2018-06-05 02:00] VITALS: BP 135/86; PULSE 69; RESP 18
[2018-06-05] MEDS: PANTOPRAZOLE (EC) 40 MG TAB PO SCH (05:37)
[2018-06-05] MEDS: ONDANSETRON 4 MG TAB PO PRN ×2 (05:40→14:02)
[2018-06-05] MEDS: KETOROLAC 30 MG INJ IV PRN (05:41)
--- NOTE | 2018-06-05 06:54 | NUR ---
RN Notes Patient had no change in condition overnight. Pain was adequately managed with Toradol and x 1 dose of Dilaudid. Upon pain reassessment, patient had no further complaints of pain. Patient had a shower last night, stated she felt much better. Hourly rounding provided. Safety/fall precautions implemented and maintained throughout shift. Patient's bed at lowest position and call light is within reach. Will endorse to oncoming shift's RN.
--- NOTE | 2018-06-05 08:45 | PN ---
Date/Time of Note Date/Time of Note DATE: 06/05/18 TIME: 08:45 Assessment/Plan VTE Prophylaxis Risk score (from Ns)>0 risk: 3 SCD applied (from Ns): Yes Pharmacological prophylaxis: LMWH Lines/Catheters IV Catheter Type (from Nrsg): Peripheral IV Urinary Cath still in place: No Assessment/Plan Assessment/Plan 1. Acute headache - Will check CT head to rule out any pathological causes for CAST - Will try Fioricet and transition off IV pain control - Denies any visual changes 2. Right flank pain- improving - UA shows leuk esterase. Urine cx negative but expected since given antibiotics prior to cx being obtained - continue monitoring for improvement - IV antibiotics on board and will continue on fluids - ID on board as well 3. ?Acute cholecystitis - US and CT scan results noted - HIDA reviewed by Surgery and negative. Will not proceed with surgical interv ention at this time. - Discussed finding with patient and need to continue antibiotics and outpatient monitoring - LFT within normal limits 4. Sepsis secondary to Bacteremia - improving - repeat blood cultures negative to date - initial blood cx growing gram neg - ID consultation appreciated 5. Disposition - Will order CT scan head to assess headache Result Diagram: 06/05/18 0616 06/05/18 0616 Results 24hrs Laboratory Tests Test 06/05/18 06:16 White Blood Count 5.6 # Red Blood Count 2.96 L Hemoglobin 8.9 L Hematocrit 27.2 L Mean Corpuscular Volume 91.9 Mean Corpuscular Hemoglobin 30.1 Mean Corpuscular Hemoglobin Concent 32.7 Red Cell Distribution Width 12.9 Platelet Count 156 Mean Platelet Volume 11.1 H Immature Granulocytes % 0.900 H Neutrophils % 65.5 Lymphocytes % 22.2 Monocytes % 9.2 Eosinophils % 2.0 Basophils % 0.2 Nucleated Red Blood Cells % 0.0 Immature Granulocytes # 0.050 H Neutrophils # 3.7 Lymphocytes # 1.3 Monocytes # 0.5 Eosinophils # 0.1 Basophils # 0.0 Nucleated Red Blood Cells # 0.0 Sodium Level 141 Potassium Level 3.9 Chloride Level 106 Carbon Dioxide Level 24 Anion Gap 11 Blood Urea Nitrogen 8 Creatinine 0.60 Est Glomerular Filtrat Rate mL/min > 60 Glucose Level 89 Calcium Level 7.8 L Magnesium Level 2.1 Total Bilirubin 0.3 Direct Bilirubin 0.00 Indirect Bilirubin 0.3 Aspartate Amino Transf (AST/SGOT) 28 Alanine Aminotransferase (ALT/SGPT) 34 Alkaline Phosphatase 141 H Total Protein 6.0 L Albumin 3.0 L Globulin 3.00 Albumin/Globulin Ratio 1.00 Subjective 24 Hr Interval Summary Free Text/Dictation Patient states shes feeling better but still experiencing headache. Relief with Dilaudid but still causing nausea. No acute overnight events. Exam/Review of Systems Vital Signs Vitals Vital Signs Date Temp Pulse Resp B/P (MAP) Pulse Ox O2 O2 Flow FiO2 Time Delivery Rate 06/05/18 98.5 69 18 135/86 98 02:00 (102) 06/02/18 Room Air 20:25 Intake and Output 06/04/18 06/04/18 06/05/18 1515:00 23:00 07:00 IntakeIntake Total 100 ml 1780 ml 200 ml BalanceBalance 100 ml 1780 ml 200 ml Exam General: no acute distress. answering questions appropriately HEENT: Atraumatic, normocephalic. The pupils are equal, round and reactive. Extraocular motor are intact Chest: Nontender Lungs: Clear to auscultation bilaterally no crackles rales or wheezing Heart: Normal S1-S2, Regular rhythm and rate. No murmurs Abdomen: soft , mildly tender to palpation all quadrants, nondistended , bowel sounds are present. No guarding no rebound tenderness , Extremities: Normal to inspection, no edema no cyanosis Medications Medications Current Medications IV Flush (NS 3 ml) 3 ml PER PROTOCOL IV ; Start 06/02/18 at 20:00 Ondansetron HCl (Zofran Tab) 4 mg Q6H PRN PO NAUSEA AND/OR VOMITING Last administered on 06/05/18at 05:40; Admin Dose 4 MG; Start 06/02/18 at 20:00 Acetaminophen (Tylenol Tab) 650 mg Q6H PRN PO PAIN LEVEL 1-3 OR FEVER Last administered on 06/04/18at 12:03; Admin Dose 650 MG; Start 06/02/18 at 20:00 Acetaminophen/ Hydrocodone Bitart ([place] (5/325)) 1 tab Q6H PRN PO MODERATE PAIN LEVEL 4-6 Last administered on 06/03/18at 04:38; Admin Dose 1 TAB; Start 06/02/18 at 20:00 Docusate Sodium (Colace) 100 mg Q12H PRN PO CONSTIPATION; Start 06/02/18 at 20 :00 Bisacodyl (Dulcolax) 5 mg DAILY PRN PO CONSTIPATION; Start 06/02/18 at 20:00 Hydromorphone HCl (Dilaudid) 0.5 mg Q4H PRN IV SEVERE PAIN LEVEL 7-10 Last administered on 06/05/18at 00:27; Admin Dose 0.5 MG; Start 06/03/18 at 00:30 Piperacillin Sod/ Tazobactam Sod 100 ml @ 200 mls/hr Q6 IVPB Last administered on 06/05/18at 05:37; Admin Dose 200 MLS/HR; Start 06/03/18 at 03:30 Ketorolac Tromethamine (Toradol) 30 mg Q6H PRN IV PAIN LEVEL 1-3 Last administered on 06/05/18at 05:41; Admin Dose 30 MG; Start 06/03/18 at 10:30; Stop 06/06/18 at 10:29 Pantoprazole (Protonix Tab) 40 mg DAILY@06 PO Last administered on 06/05/18at 05:37; Admin Dose 40 MG; Start 06/04/18 at 06:00 Sodium Chloride 1,000 ml @ 80 mls/hr [id number] IV Last administered on 06/04/18at 17:05; Admin Dose 80 MLS/HR; Start 06/04/18 at 00:00 REUBEN VAZ MD Jun 05, 2018 08:45
[2018-06-05 08:48] VITALS: BP 135/82; PULSE 73; RESP 18
[2018-06-05] MEDS: SOD CHLORIDE 0.9% 1,000 ML IV SCH (10:17)
[2018-06-05] MEDS ORDERED: ACET/BUTAL/CAFF TAB PO PRN (12:00)
[2018-06-05] MEDS ORDERED: IOHEXOL 300MG/ML 150 ML BTL ONE (13:10)
[2018-06-05] MEDS ORDERED: SOD CHLORIDE 0.9% 100 ML ONE (13:10)
--- NOTE | 2018-06-05 14:19 | NUR ---
Procedure Ordered:CT BRAI WO/W CONTRAST Reason for Exam Today:CAST Previous Exams: Allergies:NKDA Current Medications Taken: Glucophage ( ) Metformin ( ) Previous reaction to contrast media: Yes ( ) No (X ) : Yes ( ) No ( X) Asthma: Yes ( ) No ( X) Diabetes: Yes ( ) No (X) Myeloma: Yes ( ) No (X ) Heart Disease: Yes ( ) No ( X) Cardiac Disease: Yes ( ) No (X ) Kidney Disease: Yes ( ) No ( X) Vascular Disease: Yes ( ) No (X ) Patient Teaching done: Yes ( ) No ( ) Printed Circuit [employer] Panels Deburrer Used: Yes ( ) No ( ) Name of Printed Circuit Board Panels Deburrer: Language Used: As part of the test requested by your doctor, contrast media may be injected into your vein while the x-rays are being taken. Occasionally, reactions from IV contrast may occur. The physician and staff of this hospital are trained to treat these reactions. Select the type of Contrast that will be given to patient: Isovue 300 ( ) Isovue 370 ( ) Visipaque ( ) Cystografin ( ) OMNIPAQUE 300 (X) Gastrographin ( ) Redi-cat ( ) Volumen ( ) Amount of contrast to be given: 80CC IV (X ) PO ( ) Date given:06/05/18 Lab Values: BUN: 8 Creatinine:0.60 Reason why contrast cannot be given: Location of patient pre-procedure:[facility] Location of patient post procedure:[facility] PT TOLERATED IV CONTRAST INJECTION WELL
--- NOTE | 2018-06-05 14:52 | CONS ---
Date/Time of Note Date/Time of Note DATE: 06/05/18 TIME: 14:50 Assessment/Plan Assessment/Plan Hospital Course Patient is alert feels the same still with right upper quadrant abdominal tenderness, no fevers WBC 5.6 no shift no bands BUN 8 creatinine 0.60 Microbiology: Blood and urine culture on June 01 grew E. coli, repeat blood cultures negative Antimicrobials: Zosyn CT of the abdomen and pelvis revealed possible cholecystitis. HIDA scan negative Physical examination: Well-developed obese middle-aged woman who is awake in no distress. Head atraumatic normocephalic. Neck is supple chest rise symmetrical breath sounds clear. Heart: S1-S2. Abdomen soft patient has tenderness over the right upper quadrant bowel sounds present extremities without cyanosis Assessment: 1. E. coli bacteremia secondary to urinary tract infection 2. RUQ abdominal pain 3. Headache Plan: Clinically unchanged overall stable, repeat blood cultures negative, plan to start on PO today, no need for surgical intervention per report, anticipate discharge on oral ciprofloxacin to complete 10 more days Result Diagram: 06/05/18 0616 06/05/18 0616 Results 24hrs Laboratory Tests Test 06/05/18 06:16 White Blood Count 5.6 # Red Blood Count 2.96 L Hemoglobin 8.9 L Hematocrit 27.2 L Mean Corpuscular Volume 91.9 Mean Corpuscular Hemoglobin 30.1 Mean Corpuscular Hemoglobin Concent 32.7 Red Cell Distribution Width 12.9 Platelet Count 156 Mean Platelet Volume 11.1 H Immature Granulocytes % 0.900 H Neutrophils % 65.5 Lymphocytes % 22.2 Monocytes % 9.2 Eosinophils % 2.0 Basophils % 0.2 Nucleated Red Blood Cells % 0.0 Immature Granulocytes # 0.050 H Neutrophils # 3.7 Lymphocytes # 1.3 Monocytes # 0.5 Eosinophils # 0.1 Basophils # 0.0 Nucleated Red Blood Cells # 0.0 Sodium Level 141 Potassium Level 3.9 Chloride Level 106 Carbon Dioxide Level 24 Anion Gap 11 Blood Urea Nitrogen 8 Creatinine 0.60 Est Glomerular Filtrat Rate mL/min > 60 Glucose Level 89 Calcium Level 7.8 L Magnesium Level 2.1 Total Bilirubin 0.3 Direct Bilirubin 0.00 Indirect Bilirubin 0.3 Aspartate Amino Transf (AST/SGOT) 28 Alanine Aminotransferase (ALT/SGPT) 34 Alkaline Phosphatase 141 H Total Protein 6.0 L Albumin 3.0 L Globulin 3.00 Albumin/Globulin Ratio 1.00 Consultation Date/Type/Reason Admit Date/Time Jun 03, 2018 at 13:37 Initial Consult Date Type of Consult id Exam/Review of Systems Vital Signs Vitals Vital Signs Date Temp Pulse Resp B/P (MAP) Pulse Ox O2 O2 Flow FiO2 Time Delivery Rate 06/05/18 98.4 73 18 135/82 96 08:48 (99) 06/02/18 Room Air 20:25 Intake and Output 06/04/18 06/04/18 06/05/18 1515:00 23:00 07:00 IntakeIntake Total 100 ml 1780 ml 200 ml BalanceBalance 100 ml 1780 ml 200 ml Medications Medications Current Medications IV Flush (NS 3 ml) 3 ml PER PROTOCOL IV ; Start 06/02/18 at 20:00 Ondansetron HCl (Zofran Tab) 4 mg Q6H PRN PO NAUSEA AND/OR VOMITING Last administered on 06/05/18at 14:02; Admin Dose 4 MG; Start 06/02/18 at 20:00 Acetaminophen (Tylenol Tab) 650 mg Q6H PRN PO PAIN LEVEL 1-3 OR FEVER Last administered on 06/04/18at 12:03; Admin Dose 650 MG; Start 06/02/18 at 20:00 Acetaminophen/ Hydrocodone Bitart ([place] (5/325)) 1 tab Q6H PRN PO MODERATE PAIN LEVEL 4-6 Last administered on 06/03/18at 04:38; Admin Dose 1 TAB; Start 06/02/18 at 20:00 Docusate Sodium (Colace) 100 mg Q12H PRN PO CONSTIPATION; Start 06/02/18 at 20:00 Bisacodyl (Dulcolax) 5 mg DAILY PRN PO CONSTIPATION; Start 06/02/18 at 20:00 Hydromorphone HCl (Dilaudid) 0.5 mg Q4H PRN IV SEVERE PAIN LEVEL 7-10 Last administered on 06/05/18at 10:14; Admin Dose 0.5 MG; Start 06/03/18 at 00:30 Piperacillin Sod/ Tazobactam Sod 100 ml @ 200 mls/hr Q6 IVPB Last administered on 06/05/18at 11:47; Admin Dose 200 MLS/HR; Start 06/03/18 at 03:30 Ketorolac Tromethamine (Toradol) 30 mg Q6H PRN IV PAIN LEVEL 1-3 Last administered on 06/05/18at 05:41; Admin Dose 30 MG; Start 06/03/18 at 10:30; Stop 06/06/18 at 10:29 Pantoprazole (Protonix Tab) 40 mg DAILY@06 PO Last administered on 06/05/18at 05:37; Admin Dose 40 MG; Start 06/04/18 at 06:00 Sodium Chloride 1,000 ml @ 80 mls/hr [id number] IV Last administered on 06/05/18at 10:17; Admin Dose 80 MLS/HR; Start 06/04/18 at 00:00 Acetaminophen/ Butalbital/ Caffeine (Fioricet) 1 tab Q4H PRN PO PAIN Last administered on 06/05/18at 14:02; Admin Dose 1 TAB; Start 06/05/18 at 12:00 ADAM LITTLE NP Jun 05, 2018 14:52
--- NOTE | 2018-06-05 15:03 | NUR ---
RN Notes: patient remains alert and oriented, no acute distress noted. afebrile, no sob noted, c/o headache, Dr. Guerrero aware and received ordered. CT Scan of the Head done, result still pending medicated with pain medication, c/o feeling nauseous, no vomiting noted, requested for Zofran given as ordered. Per Dr. Guerrero will not proceed with surgical intervention at this time per surgeon point of view, started pt on [place] diet. Hourly rounding done, call light within reach, bed alarm on. Will continue to monitor until the end of the shift. Addendum: 06/05/18 at 1906 by JOHNATHAN FORD RN No significant events during this shift will endorse for continuity of care
[2018-06-05 15:05] VITALS: BP 138/71; PULSE 80; RESP 18
[2018-06-05] MEDS: FLUTICASONE 0.05% 16 GM NAS SPRAY NASAL SCH ×2 (16:01→20:18)
[2018-06-05] MEDS: LORATADINE/PSEUDOEPHED (SR) TAB PO SCH ×2 (16:01→20:19)
[2018-06-05 19:44] VITALS: BP 143/87; PULSE 78; RESP 18
[2018-06-06] MEDS: PIPER-TAZO 3.375 GM IV (PMX) 100 ML IVPB SCH ×5 (00:17→23:27)
[2018-06-06] MEDS: ONDANSETRON 4 MG TAB PO PRN ×2 (00:22→08:58)
[2018-06-06] MEDS: SOD CHLORIDE 0.9% 1,000 ML IV SCH ×4 (00:22→17:56)
[2018-06-06 02:00] VITALS: BP 130/83; PULSE 81; RESP 18
[2018-06-06] MEDS: PANTOPRAZOLE (EC) 40 MG TAB PO SCH (05:44)
[2018-06-06 07:45] VITALS: BP 156/89; PULSE 66; RESP 18
[2018-06-06] MEDS: FLUTICASONE 0.05% 16 GM NAS SPRAY NASAL SCH ×2 (08:54→20:05)
[2018-06-06] MEDS: LORATADINE/PSEUDOEPHED (SR) TAB PO SCH ×2 (08:54→20:05)
--- NOTE | 2018-06-06 10:45 | PN ---
Date/Time of Note Date/Time of Note DATE: 06/06/18 TIME: 10:42 Assessment/Plan VTE Prophylaxis Risk score (from Ns)>0 risk: 2 SCD applied (from Ns): Yes Pharmacological prophylaxis: LMWH Lines/Catheters IV Catheter Type (from Nrsg): Peripheral IV Urinary Cath still in place: No Assessment/Plan Assessment/Plan 1. Acute sinusitis - CT head results noted - Started on Claritin and flonase with improvement in headache - Denies any visual changes 2. Right flank pain- improving - UA shows leuk esterase. Urine cx negative but expected since given antibiotics prior to cx being obtained - continue monitoring for improvement - IV antibiotics on board and recommending d/c on Cipro for 10 more days - ID on board as well 3. ?Acute cholecystitis - US and CT scan results noted - HIDA reviewed by Surgery and negative. Will not proceed with surgical intervention at this time. - Discussed finding with patient and need to continue antibiotics and outpatient monitoring - LFT within normal limits 4. Sepsis secondary to Bacteremia- resolving - repeat blood cultures negative to date - initial blood cx growing gram neg - ID consultation appreciated 5. Disposition - Medically stable for discharge home today Result Diagram: 06/05/18 0616 06/05/18 0616 Subjective 24 Hr Interval Summary Free Text/Dictation Patient feeling better but still with some nausea. States Claritin has been helping relieve her headache symptoms. No acute overnight events. Exam/Review of Systems Vital Signs Vitals Vital Signs Date Temp Pulse Resp B/P (MAP) Pulse Ox O2 O2 Flow FiO2 Time Delivery Rate 06/06/18 98.4 66 18 156/89 94 Room Air 07:45 (111) Intake and Output 06/05/18 06/05/18 06/06/18 1515:00 23:00 07:00 IntakeIntake Total 720 ml 1170 ml 1040 ml OutputOutput Total 2620 ml BalanceBalance 720 ml -1450 ml 1040 ml Exam General: no acute distress. answering questions appropriately Chest: Nontender Lungs: Clear to auscultation bilaterally no crackles rales or wheezing Heart: Normal S1-S2, Regular rhythm and rate. No murmurs Abdomen: soft , nontender to palpation all quadrants, nondistended , bowel sounds are present. No guarding no rebound tenderness , Extremities: Normal to inspection, no edema no cyanosis Medications Medications Current Medications IV Flush (NS 3 ml) 3 ml PER PROTOCOL IV ; Start 06/02/18 at 20:00 Ondansetron HCl (Zofran Tab) 4 mg Q6H PRN PO NAUSEA AND/OR VOMITING Last administered on 06/06/18at 08:58; Admin Dose 4 MG; Start 06/02/18 at 20:00 Acetaminophen (Tylenol Tab) 650 mg Q6H PRN PO PAIN LEVEL 1-3 OR FEVER Last administered on 06/04/18at 12:03; Admin Dose 650 MG; Start 06/02/18 at 20:00 Acetaminophen/ Hydrocodone Bitart ([place] (5/325)) 1 tab Q6H PRN PO MODERATE PAIN LEVEL 4-6 Last administered on 06/03/18at 04:38; Admin Dose 1 TAB; Start 06/02/18 at 20:00 Docusate Sodium (Colace) 100 mg Q12H PRN PO CONSTIPATION; Start 06/02/18 at 20:00 Bisacodyl (Dulcolax) 5 mg DAILY PRN PO CONSTIPATION; Start 06/02/18 at 20:00 Hydromorphone HCl (Dilaudid) 0.5 mg Q4H PRN IV SEVERE PAIN LEVEL 7-10 Last administered on 06/05/18at 10:14; Admin Dose 0.5 MG; Start 06/03/18 at 00:30 Piperacillin Sod/ Tazobactam Sod 100 ml @ 200 mls/hr Q6 IVPB Last administered on 06/06/18at 05:44; Admin Dose 200 MLS/HR; Start 06/03/18 at 03:30 Pantoprazole (Protonix Tab) 40 mg DAILY@06 PO Last administered on 06/06/18at 05:44; Admin Dose 40 MG; Start 06/04/18 at 06:00 Sodium Chloride 1,000 ml @ 80 mls/hr [id number] IV Last administered on 06/06/18at 00:22; Admin Dose 80 MLS/HR; Start 06/04/18 at 00:00 Acetaminophen/ Butalbital/ Caffeine (Fioricet) 1 tab Q4H PRN PO PAIN Last adm inistered on 06/05/18at 14:02; Admin Dose 1 TAB; Start 06/05/18 at 12:00 Loratadine/ Pseudoephedrine Sulfate (Claritin-D 12 Hr) 1 tab Q12 PO Last administered on 06/06/18 08:54; Admin Dose 1 TAB; Start 06/05/18 at 15:30 Fluticasone Propionate (Flonase 0.05% Nasal) 1 spray BID NASAL Last admini stered on 06/06/18 08:54; Admin Dose 1 SPRAY; Start 06/05/18 at 15:30 REUBEN VAZ MD Jun 06, 2018 10:45
[2018-06-06] MEDS ORDERED: FLUT16SP17 NASAL (10:47)
[2018-06-06] MEDS ORDERED: CIPR500T4 PO (10:47)
[2018-06-06] MEDS ORDERED: LORA1TAB PO (10:47)
--- NOTE | 2018-06-06 10:50 | PDOCDIS ---
Discharge Instructions DIAGNOSIS Discharge Diagnosis 1. Acute sinusitis 2. Right flank pain- improving 3. ?Acute cholecystitis 4. Sepsis secondary to Bacteremia CONDITION [id number] Patient Condition: [id number] Stable HOME CARE INSTRUCTIONS: Hirtn2Sd Diet Instructions: [id number] Low Fat /Cholesterol FOLLOW UP/APPOINTMENTS Follow-up Plan 1. Follow up with your primary care physician in 1 week 2. Avoid fatty, greasy, heavy foods that will irritate your stomach and gallbladder 3. Continue Cipro 500mg twice a day for 10 more days, with next dose tomorrow 4. Continue using Flonase daily and allergy medication until sinusitis symptoms resolved 5. If symptoms return, please go to your closest emergency department REUBEN VAZ MD Jun 06, 2018 10:50
[2018-06-06] MEDS ORDERED: ONDA4TAB14 PO (10:51)
--- NOTE | 2018-06-06 10:54 | NUR ---
RN NOTES Patient complained of being nauseated, Zofran 4 mg tablet given. Patient was just seen by dr Guerrero with an order for discharge. patient denies any pain upon assessment. MD was made aware of the nausea and as per MD patient is okay to be dc'd with home medication but she can hold the discharge if nausea worsens.
[2018-06-06] MEDS ORDERED: ONDANSETRON 4 MG INJ IV STA (11:16)
[2018-06-06] MEDS ORDERED: SIME80TA53 PO (11:24)
--- NOTE | 2018-06-06 12:18 | CONS ---
Date/Time of Note Date/Time of Note DATE: 06/06/18 TIME: 12:16 Assessment/Plan Assessment/Plan Hospital Course + nausea per reprt, no other changes, looks comfortable, no fevers Microbiology: Blood and urine culture on June 01 grew E. coli, repeat blood cultures negative Antimicrobials: Zosyn CT of the abdomen and pelvis revealed possible cholecystitis. HIDA scan negative Physical examination: Well-developed obese middle-aged woman who is awake in no distress. Head atraumatic normocephalic. Neck is supple chest rise symmetrical breath sounds clear. Heart: S1-S2. Abdomen soft patient has te nderness over the right upper quadrant bowel sounds present extremities without cyanosis Assessment: 1. E. coli bacteremia secondary to urinary tract infection 2. RUQ abdominal pain 3. Headache ?sinusitis per CT Plan: Clinically stable, change abx to oral Levaquin 10 more days Result Diagram: 06/05/1816 06/05/18 0616 Consultation Date/Type/Reason Admit Date/Time Jun 03, 2018 at 13:37 Initial Consult Date Type of Consult id Exam/Review of Systems Vital Signs Vitals Vital Signs Date Temp Pulse Resp B/P (MAP) Pulse Ox O2 O2 Flow FiO2 Time Delivery Rate 06/06/18 98.4 66 18 156/89 94 Room Air 07:45 (111) Intake and Output 06/05/18 06/05/18 06/06/18 1515:00 23:00 07:00 IntakeIntake Total 720 ml 1170 ml 1040 ml OutputOutput Total 2620 ml BalanceBalance 720 ml -1450 ml 1040 ml Medications Medications Current Medications IV Flush (NS 3 ml) 3 ml PER PROTOCOL IV ; Start 06/02/18 at 20:00 Ondansetron HCl (Zofran Tab) 4 mg Q6H PRN PO NAUSEA AND/OR VOMITING Last administered on 06/06/18at 08:58; Admin Dose 4 MG; Start 06/02/18 at 20:00 Acetaminophen (Tylenol Tab) 650 mg Q6H PRN PO PAIN LEVEL 1-3 OR FEVER Last administered on 06/04/18at 12:03; Admin Dose 650 MG; Start 06/02/18 at 20:00 Acetaminophen/ Hydrocodone Bitart ([place] (5/325)) 1 tab Q6H PRN PO MODERATE PAIN LEVEL 4-6 Last administered on 06/03/18 04:38; Admin Dose 1 TAB; Start 1 08/03/17 at 20:00 Docusate Sodium (Colace) 100 mg Q12H PRN PO CONSTIPATION; Start 06/02/18 at 20:00 Bisacodyl (Dulcolax) 5 mg DAILY PRN PO CONSTIPATION; Start 06/02/18 at 20:00 Hydromorphone HCl (Dilaudid) 0.5 mg Q4H PRN IV SEVERE PAIN LEVEL 7-10 Last administered on 06/05/18 10:14; Admin Dose 0.5 MG; Start 06/03/18 at 00:30 Piperacillin Sod/ Tazobactam Sod 100 ml @ 200 mls/hr Q6 IVPB Last administered on 06/06/18 11:58; Admin Dose 200 MLS/HR; Start 06/03/18 at 03:30 Pantoprazole (Protonix Tab) 40 mg DAILY@06 PO Last administered on 06/06/18 05:44; Admin Dose 40 MG; Start 06/04/18 at 06:00 Sodium Chloride 1,000 ml @ 80 mls/hr [id number] IV Last administered on 06/06/18 00:22; Admin Dose 80 MLS/HR; Start 06/04/18 at 00:00 Acetaminophen/ Butalbital/ Caffeine (Fioricet) 1 tab Q4H PRN PO PAIN Last administered on 06/05/18 14:02; Admin Dose 1 TAB; Start 06/05/18 at 12:00 Loratadine/ Pseudoephedrine Sulfate (Claritin-D 12 Hr) 1 tab Q12 PO Last administered on 06/06/18 08:54; Admin Dose 1 TAB; Start 06/05/18 at 15:30 Fluticasone Propionate (Flonase 0.05% Nasal) 1 spray BID NASAL Last administered on 06/06/18 08:54; Admin Dose 1 SPRAY; Start 06/05/18 at 15:30 Simethicone (Mylicon) 80 mg Q6H PRN GTB DISTENSION/GAS/BLOATING Last administered on 06/06/18 11:58; Admin Dose 80 MG; Start 06/06/18 at 11:30 ADAM LITTLE NP Jun 06, 2018 12:18
[2018-06-06 14:20] VITALS: BP 159/79; PULSE 57; RESP 16
[2018-06-06] MEDS: ACETAMINOPHEN 325 MG TAB PO PRN (15:26)
--- NOTE | 2018-06-06 18:30 | NUR ---
RN NOTES Patient has no significant change but as per patient she still feels so weak and she feels that she is going to have a fever. Temperature 99, Dr Guerrero was made aware and gave an order to hold DC today. Patient was also given Zofran 4 mg IV x 1 and Mylicon 80 mg tab every 6 hours PRN. Still on Zosyn every 6 hours. Patient denies pain every assessment. Will endorse to night supervisor for continuity of care.
[2018-06-06] MEDS: HYDROCODONE/APAP (5/325) TAB PO PRN (20:06)
[2018-06-06 20:42] VITALS: BP 152/80; PULSE 75; RESP 17
[2018-06-07 02:00] VITALS: BP 168/94; PULSE 83; RESP 18
[2018-06-07] MEDS ORDERED: CEPASTAT LOZENGE MT PRN (02:00)
--- NOTE | 2018-06-07 05:44 | NUR ---
PT IS A.O X4. C/O OF HEADACHE AND RIGHT FLANK PAIN, MEDICATED WITH NORCO, GOOD RELIEF. NO DISTRESS NOTED. AFEBRIL.NO NAUSEA NOTED. ALL DUE MEDS GIVEN. NEEDS ATTENDED. HOURLY ROUNDING MADE. CALL LIGHT AND TABLE ARE WITHIN REACH. C/O OF SORE THROAT, DR ABREU NOTIFIED. NEW ORDER NOTED AND CARRIED OUT.
[2018-06-07] MEDS ORDERED: LEVOFLOXACIN 500 MG TAB PO SCH (06:00)
[2018-06-07] MEDS: PIPER-TAZO 3.375 GM IV (PMX) 100 ML IVPB SCH (06:14)
[2018-06-07] MEDS: PANTOPRAZOLE (EC) 40 MG TAB PO SCH (06:15)
[2018-06-07] MEDS: HYDROCODONE/APAP (5/325) TAB PO PRN (06:22)
[2018-06-07 07:40] VITALS: BP 138/73; PULSE 70; RESP 18
[2018-06-07] MEDS: SOD CHLORIDE 0.9% 1,000 ML IV SCH (08:13)
[2018-06-07] MEDS: LORATADINE/PSEUDOEPHED (SR) TAB PO SCH (08:13)
[2018-06-07] MEDS: FLUTICASONE 0.05% 16 GM NAS SPRAY NASAL SCH (08:13)
--- NOTE | 2018-06-07 09:49 | PN ---
Date/Time of Note Date/Time of Note DATE: 06/07/18 TIME: 09:46 Assessment/Plan VTE Prophylaxis Risk score (from Nsg)>0 risk: 2 SCD applied (from Nsg): Yes Pharmacological prophylaxis: LMWH Lines/Catheters IV Catheter Type (from Nrsg): Peripheral IV Urinary Cath still in place: No Assessment/Plan Assessment/Plan 1. Acute sinusitis - still with headache but recommended continue on current treatment. Tylenol PRN for pain - CT head results noted - Continue on Claritin and Flonase - Denies any visual changes 2. Right flank pain- stable - UA shows leuk esterase. Urine cx negative but expected since given antibiotics prior to cx being obtained - IV antibiotics on board and recommending d/c on Cipro for 10 more days - ID on board as well 3. ?Acute cholecystitis - US and CT scan results noted - HIDA reviewed by Surgery and negative. Will not proceed with surgical intervention at this time. - Discussed finding with patient and need to continue antibiotics and outpatient monitoring - LFT within normal limits 4. Sepsis secondary to Bacteremia- resolving - repeat blood cultures negative to date - initial blood cx growing gram neg - ID consultation appreciated and recommending cipro for 10 more days 5. Disposition - Medically stable for discharge home today Result Diagram: 06/05/18 0616 06/05/18 0616 Subjective 24 Hr Interval Summary Free Text/Dictation Patient states shes feeling better but still with headache this am. No acute overnight events. Exam/Review of Systems Vital Signs Vitals Vital Signs Date Temp Pulse Resp B/P (MAP) Pulse Ox O2 O2 Flow FiO2 Time Delivery Rate 06/07/18 98.0 70 18 138/73 95 Room Air 07:40 (94) Intake and Output 06/06/18 06/06/18 06/07/18 1515:00 23:00 07:00 IntakeIntake Total 640 ml 500 ml 1080 ml BalanceBalance 640 ml 500 ml 1080 ml Exam General: no acute distress. answering questions appropriately Chest: Nontender Lungs: Clear to auscultation bilaterally no crackles rales or wheezing Heart: Normal S1-S2, Regular rhythm and rate. No murmurs Abdomen: soft , mildly tender right CVA. nondistended , bowel sounds are present. No guarding no rebound tenderness , Extremities: Normal to inspection, no edema no cyanosis Medications Medications Current Medications IV Flush (NS 3 ml) 3 ml PER PROTOCOL IV ; Start 06/02/18 at 20:00 Ondansetron HCl (Zofran Tab) 4 mg Q6H PRN PO NAUSEA AND/OR VOMITING Last administered on 06/06/18at 08:58; Admin Dose 4 MG; Start 06/02/18 at 20:00 Acetaminophen (Tylenol Tab) 650 mg Q6H PRN PO PAIN LEVEL 1-3 OR FEVER Last administered on 06/06/18 15:26; Admin Dose 650 MG; Start 06/02/18 at 20:00 Acetaminophen/ Hydrocodone Bitart ([place] (5/325)) 1 tab Q6H PRN PO MODERATE PAIN LEVEL 4-6 Last administered on 06/07/18 06:22; Admin Dose 1 TAB; Start 06/02/18 at 20:00 Docusate Sodium (Colace) 100 mg Q12H PRN PO CONSTIPATION; Start 06/02/18 at 20:00 Bisacodyl (Dulcolax) 5 mg DAILY PRN PO CONSTIPATION; Start 06/02/18 at 20:00 Hydromorphone HCl (Dilaudid) 0.5 mg Q4H PRN IV SEVERE PAIN LEVEL 7-10 Last administered on 06/05/18at 10:14; Admin Dose 0.5 MG; Start 06/03/18 at 00:30 Pantoprazole (Protonix Tab) 40 mg DAILY@06 PO Last administered on 06/07/18 06:15; Admin Dose 40 MG; Start 06/04/18 at 06:00 Sodium Chloride 1,000 ml @ 80 mls/hr [id number] IV Last administered on 06/07/18 08:13; Admin Dose 80 MLS/HR; Start 06/04/18 at 00:00 Acetaminophen/ Butalbital/ Caffeine (Fioricet) 1 tab Q4H PRN PO PAIN Last administered on 06/05/18 14:02; Admin Dose 1 TAB; Start 06/05/18 at 12:00 Loratadine/ Pseudoephedrine Sulfate (Claritin-D 12 Hr) 1 tab Q12 PO Last administered on 06/07/18 08:13; Admin Dose 1 TAB; Start 06/05/18 at 15:30 Fluticasone Propionate (Flonase 0.05% Nasal) 1 spray BID NASAL Last administered on 06/07/18 08:13; Admin Dose 1 SPRAY; Start 06/05/18 at 15:30 Simethicone (Mylicon) 80 mg Q6H PRN GTB DISTENSION/GAS/BLOATING Last administered on 06/06/18at 11:58; Admin Dose 80 MG; Start 06/06/18 at 11:30 Levofloxacin (Levaquin) 500 mg DAILY@06 PO Last administered on 06/07/18 06:15; Admin Dose 500 MG; Start 06/07/18 at 06:00 Phenol (Cepastat Lozenge) 1 lozenge Q1H PRN MT SORE THROAT Last administered on 06/07/18 06:19; Admin Dose 1 LOZENGE; Start 06/07/18 at 02:00 REUBEN VAZ MD Jun 07, 2018 09:49
[2018-06-07] MEDS ORDERED: HYDR-3601 PO (09:58)
--- NOTE | 2018-06-07 12:00 | NUR ---
Discharge instructions given per MD orders, instructed on medications to continue and side effects. Patient verbalized understanding of instructions. All belongings taken. Saline lock to RUE discontinued, catheter tip intact.
--- NOTE | 2018-06-07 12:10 | NUR ---
Discharge patient at this time. Discharge teaching given by charge nurse Jacqui HARRINGTON. Pt verbalize understanding. Discharge with all of her belongings. Respiration are even and non labored. NO acute distress noted. Stable condition.
--- NOTE | 2018-06-07 17:03 | DS ---
Date/Time of Note Date/Time of Note DATE: 06/07/18 TIME: 17:03 Discharge Summary Admission/Discharge Info Admit Date/Time Jun 03, 2018 at 13:37 Discharge Date/Time Jun 07, 2018 at 12:00 Discharge Diagnosis 1. Acute sinusitis 2. Right flank pain- improving 3. ?Acute cholecystitis 4. Sepsis secondary to Bacteremia Patient Condition: Stable Consults Infectious disease Procedures PROCEDURE: CT Brain with and without contrast. CLINICAL INDICATION: Persistent headache. TECHNIQUE: A CT of the brain with and without contrast was performed utilizing axial sections from the skull base through the vertex. 80 cc of Omnipaque-300 was used for the intravenous contrast. One or more the following does reduction techniques were utilized: Automated exposure control, adjustment of the mA/ or kV according to patient's size, or use of iterative reconstruction technique. Total exam CTDIvol is 39.25 x2 MGy and DLP is 1268.46 mGy-cm. DICOM images are available. COMPARISON: None available. FINDINGS: The ventricles and sulci are age-appropriate. There is no intracranial hemorrhage, mass effect or midline shift. No abnormal intra-axial or extra- axial fluid collections are seen. The nation/white matter differentiation is well preserved. No intracranial enhancing abnormality is noted. Small dilated perivascular space versus old lacunar infarct is noted in the right lentiform nucleus. No acute skull abnormality is noted. The visualized paranasal sinuses demonstrate mild scattered mucosal thickening with small fluid level in the right sphenoid sinus. IMPRESSION: 1. No acute intracranial hemorrhage, transcortical infarction or mass effect. No intracranial enhancing abnormality. 2. Small dilated perivascular space versus old lacunar infarct in the right lentiform nucleus. 3. Mild scattered paranasal sinus disease with small fluid level in the right sphenoid sinus, correlate for acute sinusitis. RPTAT: TT .Ramakrishna Rosado MD, MD Date Time Electronically viewed and signed by .Ramakrishna Rosado MD, MD on 06/05/2018 15:13 AMENDMENT: 06/04/2018 4:07:52 PM Hedy Camarillo Md Additional delayed images of the abdomen were obtained at 5 hours post injection, which demonstrate a visualization of the gastrointestinal activity. There is no scintigraphic evidence to suggest the presence of a common bile duct obstruction. PROCEDURE: HIDA scan CLINICAL INDICATION: 43 -year-old patient with abdominal pain. TECHNIQUE: Following the intravenous injection of 8.7 mCi of Tc-99m Mebrofenin, multiple anterior dynamic images of the abdomen along with numerous planar spot images of the abdomen were obtained up to 65 minutes post injection. COMPARISON: No prior HIDA scans. FINDINGS: The liver is promptly visualized, demonstrates homogeneous distribution of radionuclide. There is a visualization of the common bile duct gallbladder within normal time. Images of the abdomen obtained up to 65 minutes post injection do not reveal bowel uptake. IMPRESSION: 1. No evidence of a cystic duct obstruction. 2. Visualization of the gastrointestinal activity up to 65 minutes post injection. Delayed images to follow to clarify the finding. RPTAT: HH .Hedy Camarillo MD, MD Date Time Electronically viewed and signed by .Hedy Camarillo MD, on 06/04/2018 16:07 PROCEDURE: CT Abdomen and Pelvis Without Intravenous Contrast CLINICAL INDICATION: Abdominal pain TECHNIQUE: Axial computed tomography images of the abdomen and pelvis without intravenous contrast. Sagittal and coronal reformatted images were created and reviewed. CTDIvol (mGy) = <21.16 mGy>; total DLP (mGy-cm) = <1261.71 mGy.cm> This CT exam was performed using one or more of the following dose reduction techniques: automated exposure control, adjustment of the mA and/or kV according to patient size, and/or use of iterative reconstruction technique. DICOM images are available. COMPARISON: 11/10/2015 FINDINGS: LUNG BASES: Right greater than left basilar atelectasis is seen. PLEURAL SPACE: No pleural effusions are seen. ABDOMEN: LIVER: Unremarkable GALLBLADDER AND BILE DUCTS: The gallbladder is slightly distended and there is a suggestion of some wall thickening or pericholecystic fluid. No definite radiopaque stones. No biliary ductal dilatation or visible choledocholithiasis. PANCREAS: Unremarkable No ductal dilation. SPLEEN: Unremarkable No splenomegaly. ADRENALS: Unremarkable No mass. KIDNEYS AND URETERS: Unremarkable No hydronephrosis or renal calculi are seen. STOMACH AND BOWEL: Few colonic diverticula. No evidence for diverticulitis. No evidence for small bowel obstruction, free air, or abscess. PELVIS: APPENDIX: Suture material is seen along the medial cecum from prior appendectomy. BLADDER: Unremarkable No stones. REPRODUCTIVE: Grossly unremarkable uterus and adnexa. ABDOMEN and PELVIS: INTRAPERITONEAL SPACE: See above. BONES/JOINTS: Mild degenerative change of the spine. Large L4-5 disc bulge. SOFT TISSUES: Small fat-containing umbilical hernia. VASCULATURE: Unremarkable No abdominal aortic aneurysm. LYMPH NODES: Unremarkable No enlarged lymph nodes. OTHER FINDINGS: IMPRESSION: 1. Possible cholecystitis. Correlate with ultrasound and/or HIDA scan as appropriate. 2. Few colonic diverticula. No evidence for diverticulitis. No evidence for small bowel obstruction, free air, or abscess. RPTAT: [facility] Physician Cesar Date Time Electronically viewed and signed by Physician Cesar on 06/03/2018 02:46 PROCEDURE: Portable chest x-ray. CLINICAL INDICATION: 43 years of age, female. Right flank pain. UTI. TECHNIQUE: Portable AP view of the chest. COMPARISON: CT abdomen pelvis November 10, 2015 FINDINGS: Medical devices: None. Mediastinum: Cardiomediastinal contours are normal. Lungs: There is mild elevation of the right diaphragm that is unchanged from the prior CT. There is nonspecific mild increased opacity at the right greater than left lung bases. Lungs are otherwise clear. Pleura: Negative for pleural effusion or pneumothorax. Bones: No acute bony abnormality. Additional comment: None. IMPRESSION: 1. Mild elevation of the right diaphragm is unchanged since November 10, 2015. 2. Nonspecific opacity at the right greater than left lung bases may be due to atelectasis, aspiration or pneumonia. RPTAT: [facility]CTS Physician Constance Date Time Electronically viewed and signed by Physician Constance on 06/03/2018 01 :25 PROCEDURE: US Abdomen limited. CLINICAL INDICATION: Abdominal pain TECHNIQUE: Nation scale and color Doppler imaging of the right upper quadrant COMPARISON: CT 06/03/2018; CT 11/10/2015 FINDINGS: Liver appears enlarged with hepatic span measuring 21.4 cm. The visualized liver is homogeneous without discrete hepatic lesion seen. There is appropriately directed flow within the main portal vein The gallbladder is fluid-filled without stone present. There is mild gallbladder wall thickening measuring 4 mm and trace pericholecystic fluid is seen between the gallbladder and liver. No intra or extrahepatic biliary dilatation is seen. The common bile duct measures 4.8 mm in maximal dimension. The visualized pancreas is uniform in appearance. Distal pancreasis partially obscured by bowel gas. The right kidney measures 12.5 cm. No hydronephrosis or renal calculi are seen. IMPRESSION: There is mild gallbladder wall thickening and trace pericholecystic free fluid, that are nonspecific and may represent the presence of ongoing acute cholecystitis in the appropriate setting. Unknown sonographic Crow's sign. No gallstone or biliary ductal dilatation is seen. Correlate clinically. Further evaluation could include nuclear medicine HIDA sc an as clinically warranted. Results were called to Rebel Shah at 06/03/2018 4:21 AM RPTAT: [facility]SAF Physician Josephine Date Time Electronically viewed and signed by Physician Josephine on 06/03/2018 04:22 Hx of Present Illness Chief complaint: Fever, flank pain, positive blood culture This is a 43 year old female who was diagnosed with the last 24 hours of urinary tract infection and was given IV Rocephin and sent home on ciprofloxacin. Patient was called back to [facility] after she had a positive blood culture with gram-negative rods. Patient at the current time reports headache as well as fevers. She states that she continues to have right flank pain. She denies any chest pain. She does report urinary frequency. Upon further questioning the patient does report that her right-sided flank pain has been on and off for the last few months. Allergies: NKDA Medications: None Hospital Course Patient was complaining of right upper quadrant pain as well as right sided flank pain. She was worked up for acute cholecystitis and due to no presence of gallstones and negative HIDA scan, discussion was held with 2 different surgeons who recommended no surgical intervention. Infectious disease was consulted given bacteremia and antibiotic recommendations were made. Patient continued with headaches and CT scan revealed acute sinusitis. She was treated with antihistamine and decongestant with improvement. Patient was tolerating PO intake with some bloating relieved by simethicone. Patients presenting symptoms improved and on day of discharge, vitals and physical exam were stable. Patient was discharged home in stable condition. Home Meds Active Scripts Hydrocodone Bit-Acetaminophen (Hydrocodone Bit-APAP) 5-325MG Tablet, 1 TAB PO Q6H PRN for MODERATE PAIN LEVEL 4-6 for 7 Days, #28 TAB Prov:REUBEN VAZ MD 06/07/18 Simethicone (GAS RELIEF) 80 Mg Tab.chew, 80 MG PO Q6 PRN for DISTENSION/GAS/BLOATING for 30 Days, #120 TAB.CHEW Prov:REUBEN VAZ MD 06/06/18 Ondansetron (Ondansetron Odt) 4 Mg Tab.rapdis, 4 MG PO Q6H PRN for NAUSEA AND/OR VOMITING for 7 Days, #30 TAB Prov:REUBEN VAZ MD 06/06/18 Fluticasone Propionate* (Fluticasone Propionate* Nasal) 50 Mcg/Strum - 16 Gm Strum.susp, 1 SPRAY NASAL BID for 14 Days, #1 BOT 6 Refills Prov:REUBEN VAZ MD 06/06/18 Loratadine/Pseudoephedrine (Alavert D-12 Allergy-Sinus Tab) 1 Each Tab.er.12h, 1 TAB PO Q12 for 7 Days, #14 TAB Prov:REUBEN VAZ MD 06/06/18 Ciprofloxacin Hcl* (Ciprofloxacin Hcl*) 500 Mg Tablet, 500 MG PO BID for 10 Days, #20 TAB Prov:REUBEN VAZ MD 06/06/18 Ibuprofen* (Motrin*) 600 Mg Tab, 600 MG PO Q6, #20 TAB Prov:ASHLEY OLMOS MD 06/02/18 Discontinued Scripts Hydrocodone Bit/Acetaminophen (Anexsia 5-325 Mg Tablet) 1 Tab Tablet, 2 TAB PO Q4 PRN for PAIN LEVEL 4-7, #20 TAB Prov:KADE MEEK NP 11/11/15 Follow-up Plan 1. Follow up with your primary care physician in 1 week 2. Avoid fatty, greasy, heavy foods that will irritate your stomach and gallbladder 3. Continue Cipro 500mg twice a day for 10 more days, with next dose tomorrow 4. Continue using Flonase daily and allergy medication until sinusitis symptoms resolved 5. If symptoms return, please go to your closest emergency department Primary Care Provider Care Physician No Primary Time spent on discharge: > 30 minutes REUBEN VAZ MD Jun 07, 2018 17:03
== END 2018-06-07 12:00 | disposition home or self-care (01) | DRG 872 ==
LOC: FTE 17:11 → EDBD 17:11 → PP2 19:44 → OBSVTOIN 06-03 13:37
PROVIDERS: ADMIT Family Medicine; ATTEND Internal Medicine
DX: A41.50 Gram-negative sepsis, unspecified (principal); K81.0 Acute cholecystitis; N10 Acute pyelonephritis; R65.20 Severe sepsis without septic shock; J01.90 Acute sinusitis, unspecified; R51 Headache; E66.9 Obesity, unspecified; Z68.35 Body mass index [BMI] 35.0-35.9, adult; E86.0 Dehydration; E87.6 Hypokalemia
CPT/HCPCS: 70470; 71045; 74176; 76705; 78226; 80053; 80061; 80069; 81001; 82977; 83036; 83690; 83735; 84436; 84443; 84479; 85025; 87040; 87086; 90686; 96374; 96375; A9537; G0378; J0696; J1170; J1885; J2270; J2405; J2543; J7030; Q9967